=== PATIENT | male | born 1955 | race Caucasian/White ===

== ENCOUNTER 2020-06-12 21:04 | Emergency (ER) | payer BC ==
[2020-06-12] MEDS ORDERED: RINGERS SOLUTION,LACTATED 1,000 ML IV ONE (22:48)
--- NOTE | 2020-06-12 22:53 | ER Document Report ---
ED Medical Screen (RME) - General Chief Complaint: Breathing Difficulty Stated Complaint: COVID + DIFFICULTY BREATHING Time Seen by Provider: 06/12/20 22:40 Mode of Arrival: Wheelchair Information source: Patient Notes: HPI; 65-year-old male presents emergency room complaining of diarrhea, body aches with shortness of breath for the past week. He denies any fevers, no nausea, no vomiting. States he tested positive for Covid a week ago. Has been using [id number] cold medication without relief. PE: Alert and oriented x3. Lungs diminished without rales, rhonchi, wheezes. Heart: Tachycardic without murmurs, rubs, gallops. Accu-Chek 332 I have greeted and performed a rapid initial assessment of this patient. A comprehensive ED assessment and evaluation of the patient, analysis of test results and completion of the medical decision making process will be conducted by additional ED providers. I have specifically instructed the patient or family members with the patient to immediately return to any nursing staff should anything change in the patient's condition or with their chief complaint. TRAVEL OUTSIDE OF THE [place] IN LAST 30 DAYS: No - Related Data Allergies/Adverse Reactions: fenofibrate [From Tricor] Allergy (Verified 06/12/20 22:40) simvastatin [From Zocor] Allergy (Verified 06/12/20 22:40) Past Medical History - Social History Frequency of alcohol use: None Drug Abuse: None Physical Exam - Vital signs Vitals: Temp Pulse Resp BP Pulse Ox 97.8 F 116 H 32 H 113/59 L 97 06/12/20 21:12 06/12/20 21:12 06/12/20 21:12 06/12/20 21:12 06/12/20 21:12 Course - Vital Signs Vital signs: Temp Pulse Resp BP Pulse Ox 97.8 F 116 H 32 H 113/59 L 97 06/12/20 21:12 06/12/20 21:12 06/12/20 21:12 06/12/20 21:12 06/12/20 21:12
[2020-06-12 23:39] LABS: ABSOLUTE LYMPHOCYTES (AUTO) 0.5 10^3/uL (0.5-4.7); ABSOLUTE MONOCYTES (AUTO) 0.5 10^3/uL (0.1-1.4); ABSOLUTE NEUT (AUTO) 4.9 10^3/uL (1.7-8.2); BASOPHILS % (AUTO) 0.5 % (0-2); HEMATOCRIT 50.4 % (37.9-51.0); HEMOGLOBIN 17.9 g/dL (13.5-17.0); LYMPHOCYTES % (AUTO) 8.5 % (13-45); MEAN CORPUSCULAR HEMOGLOBIN 31.1 pg (27.0-33.4); MEAN CORPUSCULAR HGB CONC 35.6 g/dL (32.0-36.0); MEAN CORPUSCULAR VOLUME 87 fl (80-97); MONOCYTES % (AUTO) 8.7 % (3-13); PLATELET COUNT 172 10^3/uL (150-450); RED BLOOD COUNT 5.78 10^6/uL (4.35-5.55); RED CELL DISTRIBUTION WIDTH 13.6 % (11.5-14.0); SEGMENTED NEUTROPHILS % (AUTO) 82.3 % (42-78); TOTAL CELLS COUNTED % (AUTO) 100 %; WHITE BLOOD COUNT 5.9 10^3/uL (4.0-10.5)
[2020-06-12 23:52] LABS: ALBUMIN 4.2 g/dL (3.5-5.0); ALKALINE PHOSPHATASE 92 U/L (38-126); ASPARTATE AMINO TRANSFERASE 67 U/L (17-59); BILIRUBIN,DIRECT 0.3 mg/dL (0.0-0.4); BILIRUBIN,TOTAL 0.7 mg/dL (0.2-1.3); BLOOD UREA NITROGEN 22 mg/dL (7-20); CALCIUM 9.2 mg/dL (8.4-10.2); CARBON DIOXIDE 16 mmol/L (22-30); GLUCOSE 378 mg/dL (75-110); POTASSIUM 4.4 mmol/L (3.6-5.0); TOTAL PROTEIN 7.9 g/dL (6.3-8.2)
[2020-06-12 23:57] LABS: CHLORIDE 92 mmol/L (98-107)
[2020-06-13 00:13] LABS: ANION GAP 20 (5-19)
--- NOTE | 2020-06-13 00:32 | RADIOLOGY REPORT (SQ) ---
EXAM DESCRIPTION: XR CHEST 1 VIEW COMPLETED DATE/TME: 06/12/2020 23:35 CLINICAL HISTORY: 65 years Male, dyspnea COMPARISON: None. NUMBER OF VIEWS/TECHNIQUE: 1/AP FINDINGS: Mild central edema pattern including small hazy opacity of the left lower lung field. Adequate lung volume, normal cardiac silhouette, and sternotomy. IMPRESSION: Mild central edema pattern including small hazy opacity of the left lower lung field. Differential diagnosis includes pulmonary edema, pneumonia, and chronic interstitial lung disease.
--- NOTE | 2020-06-13 04:56 | ER Document Report ---
ED General - General Mode of Arrival: Wheelchair Information source: Patient TRAVEL OUTSIDE OF THE [place] IN LAST 30 DAYS: No <DRU JOHNSON - Last Filed: 06/13/20 08:02> <DOUGLAS CRISOSTOMO - Last Filed: 06/13/20 18:34> - General Chief Complaint: Flu Symptoms Stated Complaint: COVID + DIFFICULTY BREATHING Time Seen by Provider: 06/12/20 22:40 Primary Care Provider: EVITA WELSH MD [ACTIVE STAFF] - Follow up as needed Notes: Patient presents to the ER for evaluation of diarrhea with body aches, chills, fatigue. The patient also complains of shortness of breath and states he was diagnosed with COVID-19 last week. He denies significant cough. He denies nausea or vomiting. He denies abdominal pain. He denies fever. Nursing notes reviewed and past medical, social, and family histories reviewed and validated. (DRU JOHNSON) - Related Data Allergies/Adverse Reactions: fenofibrate [From Tricor] Allergy (Verified 06/12/20 22:40) simvastatin [From Zocor] Allergy (Verified 06/12/20 22:40) Past Medical History - General Information source: Patient - Social History Smoking Status: Former Smoker Chew tobacco use (# tins/day): No Frequency of alcohol use: None Drug Abuse: None Lives with: Family Family History: Reviewed & Not Pertinent Patient has suicidal ideation: No Patient has homicidal ideation: No - Past Medical History Cardiac Medical History: Reports: None Pulmonary Medical History: Reports: None EENT Medical History: Reports: None Neurological Medical History: Reports: None Endocrine Medical History: Reports: Hx Diabetes Mellitus Type 2 Renal/ Medical History: Reports: None Malignancy Medical History: Reports None GI Medical History: Reports: None Musculoskeletal Medical History: Reports None Skin Medical History: Reports None Psychiatric Medical History: Reports: None Traumatic Medical History: Reports: None Infectious Medical History: Reports: None Past Surgical History: Reports: None <DRU JOHNSON - Last Filed: 06/13/20 08:02> Review of Systems <DRU JOHNSON - Last Filed: 06/13/20 08:02> - Review of Systems Notes: Constitutional: Negative for fever. Positive for body aches. HENT: Negative for sore throat. Eyes: Negative for visual changes. Cardiovascular: Negative for chest pain. Respiratory: Negative for shortness of breath. Gastrointestinal: Negative for abdominal pain. Positive for diarrhea. Negative for nausea and vomiting. Genitourinary: Negative for dysuria. Musculoskeletal: Negative for back pain. Skin: Negative for rash. Neurological: Negative for headaches, weakness or numbness. 10 point ROS negative except as marked above and in HPI. (DRU JOHNSON) Physical Exam <DRU JOHNSON - Last Filed: 06/13/20 08:02> - Vital signs Vitals: Temp Pulse Resp BP Pulse Ox 97.8 F 116 H 32 H 113/59 L 97 06/12/20 21:12 06/12/20 21:12 06/12/20 21:12 06/12/20 21:12 06/12/20 21:12 - Notes Notes: CONSTITUTIONAL: Patient is frail appearing. SKIN: Warm, dry, and intact without rash EYES: Extraocular movements are grossly intact, clear conjunctiva HENT: Normocephalic, atraumatic, dry mucus membranes NECK: No obvious swelling, normal range of motion PULMONARY: Normal chest rise and fall. Breath sounds clear and equal bilaterally. No respiratory distress or stridor CARDIOVASCULAR: Regular tachycardic rate. No murmurs, rubs, gallops. Distal extremities are warm and well perfused. ABDOMINAL: Soft, nontender NEUROLOGIC: Normal speech, moves all extremities. Cranial nerves are within normal limits. MUSCULOSKELETAL: No gross deformities, atraumatic PSYCHIATRIC: Normal mood and affect (DRU JOHNSON) Course - Laboratory Results Result Diagrams: 06/12/20 23:22 06/12/20 23:22 - Transfer of Care Care transferred to following provider: IDALMIS Pittman <DRU JOHNSON - Last Filed: 06/13/20 08:02> - Laboratory Results Result Diagrams: 06/12/20 23:22 06/13/20 15:13 Critical Laboratory Results Reviewed: No Critical Results - reviewed all lab results w/ Dr Meade. - Radiology Results Critical Radiology Results Reviewed: No Critical Results - dr meade aware of CXR reports of hazy LLL infiltrate. <DOUGLAS CRISOSTOMO - Last Filed: 06/13/20 18:34> - Re-evaluation Re-evalutation: 06/13/20 12:50 Assumed care of patient at shift change at 8 AM the prior midlevel provider. Briefly, patient had presented after being diagnosed with Covid for 1 week with ongoing diarrhea and body aches. The current plan is pending ABG results due to patient's blood sugar of 380. He is a known insulin-dependent diabetic. His vital signs are reassuring and is not hypoxic. Chest x-ray did note a hazy opacity in the left lower lung. Which I will treat with azithromycin. Hold off on steroids due to hyperglycemia. Patient also giv en 4 mg of loperamide in the ED due to diarrhea. He reports significantly improved symptoms since arrival. Patient says he feels well enough to discharge home. He appears ill but nontoxic. He is denying chest pains or shortness of breath to me. ABG resulted, pH is 7.42. Decreased PCO2, decreased bicarb. PO266.9 XxD565%. Compensated metabolic acidosis He is unable to give me a specific amount of units of NovoLog he takes at home. But says he has been compliant up until yesterday and his blood sugar generally runs in the 150s. Patient received a liter of LR before I arrived, I added a second liter of normal saline. We will recheck blood sugar after these. If patient's blood sugar has improved to below 300, will DC home w/ azithromycin and supportive care at home. PCP f/u in 1-2 days for recheck. return factors discussed w/ pt 06/13/20 16:08 Spoke with patient's on the phone. She reports concerns of confusion, weakness, and multiple falls at home the past couple days. She checked his medication log and noted that he has not filled out his insulin log at all the past few days which usually he is very detailed. She says that she will tell him something and a few minutes later she will have to tell him again and he acts like she had never said that. She read off patient's home meds and says that he takes NovoLog 100 units maybe twice a day. She is concerned about him returning home due to his weakness and confusion and repeated falls. I discussed case with Dr. Dawkins-we will get CT head, blood cultures, tox screen since I now have new information of patient's confusion and repeated falls at home in the context of Covid positive with a left lower lobe infiltrate. Azithromycin 500 mg IV started. Pending repeat BMP. Accu-Chek 280, insulin order was canceled. Patient's curb 65 score is 2 due to elevated BUN and confusion. his blood pressure has been stable and o2 sats have been in the mid 90's. Difficult to ascertain whether patient is truly confused. He routinely just gives 1 word answers and is generally agreeable. I will consult the hospitalist to discuss possible observation/admission. CT head reviewed and negative for acute findings. 06/13/20 18:02 Dr Hanson - hospitalist- evaluated the pt. Feels he is appropriate to discharge home for outpt management. Pts overall clinical picture reflects dehydration and ketosis from not eating. Recommended the pt push fluids at home, take otc vitamin C and zinc, hold lasix for next few days. 1 dose of PO ivermectin given prior to discharge. Does not feel outpt antibiotics are necessary at this time. Dr Hanson updated pts regarding plan, requests I write pt for flonase, albuterol, and immodium for symptomatic treatment of wheezing/congestion/diarrhea as reported by . Pt is to closely monitor symptoms and to return if condition worsens. pcp f/u in the next couple days for recheck. 06/13/20 18:29 (DOUGLAS CRISOSTOMO) - Vital Signs Vital signs: Temp Pulse Resp BP Pulse Ox 97.8 F 93 26 H 125/65 96 06/12/20 21:12 06/13/20 06:47 06/13/20 15:01 06/13/20 15:00 06/13/20 15:01 - Laboratory Results Laboratory Results Interpreted: 06/12/20 06/12/20 06/12/20 08:05 22:48 23:22 RBC 5.78 H Hgb 17.9 H Lymph % (Auto) 8.5 L Seg Neutrophils % 82.3 H Carbonic Acid 0.78 L ABG pCO2 26.0 L ABG pO2 66.9 L ABG HCO3 16.5 L ABG Total CO2 17.3 L Sodium Chloride Carbon Dioxide Anion Gap BUN Glucose POC Glucose 362 H Calcium AST Urine Protein Urine Glucose (UA) Urine Ketones Urine Blood Urine Ascorbic Acid 06/12/20 06/13/20 06/13/20 23:22 08:31 09:36 RBC Hgb Lymph % (Auto) Seg Neutrophils % Carbonic Acid ABG pCO2 ABG pO2 ABG HCO3 ABG Total CO2 Sodium 128.2 L Chloride 92 L Carbon Dioxide 16 L Anion Gap 20 H BUN 22 H Glucose 378 H POC Glucose 340 H Calcium AST 67 H Urine Protein 100 H Urine Glucose (UA) 150 H Urine Ketones 100 H Urine Blood MODERATE H Urine Ascorbic Acid 20 H 06/13/20 06/13/20 13:23 15:13 RBC Hgb Lymph % (Auto) Seg Neutrophils % Carbonic Acid ABG pCO2 ABG pO2 ABG HCO3 ABG Total CO2 Sodium 132.6 L Chloride Carbon Dioxide 21 L Anion Gap BUN 21 H Glucose 299 H POC Glucose 281 H Calcium 8.3 L AST Urine Protein Urine Glucose (UA) Urine Ketones Urine Blood Urine Ascorbic Acid - Transfer of Care Notes: 06/13/20 08:02 Report given to oncoming provider, IDALMIS Pittman. (DRU JOHNSON) Discharge <DRU JOHNSON - Last Filed: 06/13/20 08:02> <DOUGLAS CRISOSTOMO - Last Filed: 06/13/20 18:34> - Discharge Clinical Impression: COVID-19, Dehydration, Left lower lobe pulmonary infiltrate Hyperglycemia due to type 2 diabetes mellitus Qualifiers: Diabetes mellitus ad terminal makeup operator insulin use: with nursing home use Qualified Code(s): E11.65 - Type 2 diabetes mellitus with hyperglycemia Clinical Impression: (Ruled Out): Left lower lobe pneumonia Condition: Stable Disposition: HOME, SELF-CARE Instructions: COVID-19 Guidance for Persons Under Investigation, Dehydration (OM) Additional Instructions: Do not take lasix for the next 3-4 days. Drinks lots of water- you were very dehydrated. do not drink Diet mountain dew, it will make you more dehydrated. closely monitor your blood sugar and take your insulin and home medications as prescribed. You can also take vitamin C and Zinc to help you recover from COVID. It will be a process to recover from COVID, which can take many weeks. return to the ER if your condition worsens. Prescriptions: Loperamide HCl [Loperamide] 2 mg PO Q6HP PRN #15 tablet PRN Reason: Fluticasone Propionate [Flonase Nasal Entriken 50 Mcg/Entriken 16 gm] 1 spray NASL Q12 #1 inhaler Albuterol Sulfate [Proair HFA Inhalation Aerosol 8.5 gm MDI] 2 puff IH Q4H PRN #1 mdi PRN Reason: Referrals: OSUNKOYA,EVITA, MD [ACTIVE STAFF] - Follow up as needed
[2020-06-13 08:24] LABS: ARTERIAL BLOOD BASE EXCESS -5.8 mmol/L; ARTERIAL BLOOD H2CO3 0.78 mmol/L (1.05-1.35); ARTERIAL BLOOD HCO3 16.5 mmol/L (20-24); ARTERIAL BLOOD PH 7.42 (7.35-7.45); ARTERIAL BLOOD PO2 66.9 mmHg (80-100); ARTERIAL BLOOD TOTAL CO2 17.3 mmol/L (23-27)
[2020-06-13 08:27] LABS: ARTERIAL BLOOD FIO2 21%
[2020-06-13 09:11] LABS: APPEARANCE,URINE CLEAR; BILIRUBIN,URINE NEGATIVE (NEGATIVE); COLOR,URINE YELLOW; GLUCOSE, URINE 150 mg/dL (NEGATIVE); KETONES,URINE 100 mg/dL (NEGATIVE); LEUKOCYTE ESTERASE,URINE NEGATIVE (NEGATIVE); NITRITE,URINE NEGATIVE (NEGATIVE); PROTEIN,URINE 100 mg/dL (NEGATIVE); UROBILINOGEN,URINE NEGATIVE mg/dL (<2.0)
[2020-06-13] MEDS ORDERED: NORMAL SALINE 1000 ML 1,000 ML IV ONE (09:12)
[2020-06-13] MEDS ORDERED: LOPERAMIDE HCL 2 MG CAPSULE PO ONE ×2 (09:15→11:30)
[2020-06-13] MEDS ORDERED: INSULIN LISPRO 100 UNIT/ML 3 ML VIAL SUBCUT ONE (13:02)
[2020-06-13] MEDS ORDERED: DEXTROSE 40% GEL 15 GM TUBE PO PRN ×2 (13:02)
[2020-06-13] MEDS ORDERED: GLUCAGON,HUMAN RECOMB 1 MG INJ IM PRN (13:02)
[2020-06-13] MEDS ORDERED: DEXTROSE 50%-WATER 25 GM/50 ML DISP.SYRIN IV PRN ×2 (13:02)
[2020-06-13] MEDS ORDERED: AZITHROMYCIN INJ 500 MG VIAL IV ONE (13:45)
--- NOTE | 2020-06-13 15:12 | RADIOLOGY REPORT (SQ) ---
EXAM DESCRIPTION: CT HEAD WITHOUT IMAGES COMPLETED DATE/TIME: 06/13/2020 3:01 pm REASON FOR STUDY: confusion, covid COMPARISON: None. TECHNIQUE: Axial images acquired through the brain without intravenous contrast. Images reviewed wi th bone, brain and subdural windows. Additional sagittal and coronal reconstructions were generated. Images stored on PACS. All CT scanners at this facility use dose modulation, iterative reconstruction, and/or weight based d osing when appropriate to reduce radiation dose to as low as reasonably achievable (ALARA). [facility]: Dose Right [facility]: CareDose [facility]: Dose Right [facility]: Teradose 4D [facility]: [employer] RADIATION DOSE: CT Rad equipment meets quality standard of care and radiation dose reduction techniq ues were employed. CTDIvol: 53.2 mGy. DLP: 1097 mGy-cm. mGy. LIMITATIONS: None. FINDINGS: VENTRICLES: Normal size and contour. CEREBRUM: No masses. No hemorrhage. No midline shift. No evidence for acute infarction. Normal gra y/white matter differentiation. No areas of low density in the white matter. CEREBELLUM: No masses. No hemorrhage. No alteration of density. No evidence for acute infarction. EXTRAAXIAL SPACES: No fluid collections. No masses. ORBITS AND GLOBE: No intra- or extraconal masses. Normal contour of globe without masses. CALVARIUM: No fracture. PARANASAL SINUSES: Mild mucosal thickening throughout the paranasal sinuses. SOFT TISSUES: No mass or hematoma. OTHER: No other significant finding. IMPRESSION: 1. No acute intracranial event. 2. Mild mucosal thickening throughout the paranasal sinuses. EVIDENCE OF ACUTE STROKE: NO. COMMENT: Quality ID # [id number]: Final reports with documentation of one or more dose reduction techniques (e.g., Automated exposure control, adjustment of the mA and/or kV according to patient size, use of iterative reconstruction technique) TECHNICAL DOCUMENTATION: JOB ID: [id number] 2010 [employer]- All Rights Reserved Reading location - IP/workstation name: [email or web address]
[2020-06-13 16:07] LABS: ANION GAP 14 (5-19); BLOOD UREA NITROGEN 21 mg/dL (7-20); CALCIUM 8.3 mg/dL (8.4-10.2); CARBON DIOXIDE 21 mmol/L (22-30); CHLORIDE 98 mmol/L (98-107); GLUCOSE 299 mg/dL (75-110); POTASSIUM 4.1 mmol/L (3.6-5.0)
[2020-06-13 16:30] LABS: URINE AMPHETAMINES SCREEN NEGATIVE; URINE BARBITURATES SCREEN NEGATIVE; URINE BENZODIAZEPINES SCREEN NEGATIVE; URINE COCAINE SCREEN NEGATIVE; URINE MARIJUANA (THC) SCREEN NEGATIVE; URINE METHADONE SCREEN NEGATIVE; URINE PHENCYCLIDINE SCREEN NEGATIVE
--- NOTE | 2020-06-13 18:21 | PDOC CONSULTATION ---
Consultation Consult Date: 06/13/20 Attending physician:: DOUGLAS CRISOSTOMO Provider Consulted: MIKE DONIS Consult reason:: covid, dehydration History of Present Illness History of Present Illness: NERISSA DOMINGUEZ is a 65 year old male with history of CAD, diabetes mellitus, presents to the hospital for evaluation of diarrhea and concerns for fatigue and dehydration. Patient is not having much respiratory symptoms besides just some nasal congestion. His does notice that he has had some wheezing. He does not feel short of breath at all. He has had some fevers at home. He tested positive for COVID-19 little less than a week ago at [facility]. He has been at home on isolation and has vitamin and zinc supplements. He denies any abdominal pain. He does endorse frequent diarrhea and states about 7 episodes in the past 24 hours prior to presentation. ER provider does tell me that he has not had much of any diarrhea here at all. He has also not been hypoxic while in the hospital with SPO2 remaining in the 90s on room air. Vital signs have been stable. He did receive some hydration given his hyperglycemia noted ketonuria. Patient admits to very poor p.o. intake and loss of appetite since his infection. Denies any nausea and is able to tolerate p.o. Past Medical History Cardiac Medical History: Reports: Coronary Artery Disease Endocrine Medical History: Reports: Diabetes Mellitus Type 2 Past Surgical History Past Surgical History: Reports: Coronary Artery Bypass Graft Social History Lives with: Family Smoking Status: Former Smoker Frequency of Alcohol Use: None Hx Recreational Drug Use: No Family History Family History: DM, Hypertension Parental Family History Reviewed: Yes Children Family History Reviewed: Yes Sibling(s) Family History Reviewed.: Yes Medication/Allergy Allergies/Adverse Reactions: fenofibrate [From Tricor] Allergy (Verified 06/12/20 22:40) simvastatin [From Zocor] Allergy (Verified 06/12/20 22:40) Review of Systems Constitutional: PRESENT: fatigue, fever(s), weakness Eyes: ABSENT: visual disturbances Ears: ABSENT: hearing changes Nose, Mouth, and Throat: ABSENT: headache(s) Cardiovascular: ABSENT: chest pain Respiratory: ABSENT: cough, dyspnea Gastrointestinal: ABSENT: abdominal pain, nausea, vomiting Genitourinary: ABSENT: dysuria Neurological: PRESENT: confusion. ABSENT: dizziness Endocrine: ABSENT: polyuria Hematologic/Lymphatic: ABSENT: lymphadenopathy Allergic/Immunologic: PRESENT: other - nasal congestion Physical Exam Vital Signs: Temp Pulse Resp BP Pulse Ox 97.8 F 93 26 H 125/65 96 06/12/20 21:12 06/13/20 06:47 06/13/20 15:01 06/13/20 15:00 06/13/20 15:01 Intake & Output 06/12/20 06/13/20 06/14/20 06:59 06:59 06:59 Intake Total 1999 Balance 1999 Weight 90.718 kg General appearance: PRESENT: no acute distress, cooperative Eye exam: PRESENT: EOMI Neck exam: ABSENT: JVD Respiratory exam: PRESENT: crackles - minimal, symmetrical, unlabored. ABSENT: tachypnea, wheezes Cardiovascular exam: PRESENT: RRR, +S1, +S2. ABSENT: tachycardia GI/Abdominal exam: PRESENT: soft. ABSENT: rebound, rigid, tenderness Extremities exam: ABSENT: calf tenderness, pedal edema Neurological exam: PRESENT: alert, awake, oriented to person, oriented to place, oriented to time, oriented to situation Psychiatric exam: ABSENT: agitated, anxious Focused psych exam: ABSENT: pressured speech Skin exam: ABSENT: jaundice Results Laboratory Results: 06/12/20 23:22 06/13/20 15:13 06/12/20 06/12/20 06/12/20 08:05 23:22 23:22 WBC 5.9 RBC 5.78 H Hgb 17.9 H Hct 50.4 MCV 87 MCH 31.1 MCHC 35.6 RDW 13.6 Plt Count 172 Seg Neutrophils % 82.3 H Carbonic Acid 0.78 L HCO3/H2CO3 Ratio 21:1 ABG pH 7.42 ABG pCO2 26.0 L ABG pO2 66.9 L ABG HCO3 16.5 L ABG O2 Saturation 94.0 ABG Base Excess -5.8 FiO2 21% Sodium 128.2 L Potassium 4.4 Chloride 92 L Carbon Dioxide 16 L Anion Gap 20 H BUN 22 H Creatinine 1.08 Est GFR ( Amer) > 60 Glucose 378 H Calcium 9.2 Total Bilirubin 0.7 AST 67 H Alkaline Phosphatase 92 Total Protein 7.9 Albumin 4.2 Urine Color Urine Appearance Urine pH Ur Specific [place] Urine Protein Urine Glucose (UA) Urine Ketones Urine Blood Urine Nitrite Ur Leukocyte Esterase Urine WBC (Auto) Urine RBC (Auto) 06/13/20 06/13/20 08:31 15:13 WBC RBC Hgb Hct MCV MCH MCHC RDW Plt Count Seg Neutrophils % Carbonic Acid HCO3/H2CO3 Ratio ABG pH ABG pCO2 ABG pO2 ABG HCO3 ABG O2 Saturation ABG Base Excess FiO2 Sodium 132.6 L Potassium 4.1 Chloride 98 Carbon Dioxide 21 L Anion Gap 14 BUN 21 H Creatinine 0.86 Est GFR ( Amer) > 60 Glucose 299 H Calcium 8.3 L Total Bilirubin AST Alkaline Phosphatase Total Protein Albumin Urine Color YELLOW Urine Appearance CLEAR Urine pH 6.0 Ur Specific [place] 1.010 Urine Protein 100 H Urine Glucose (UA) 150 H Urine Ketones 100 H Urine Blood MODERATE H Urine Nitrite NEGATIVE Ur Leukocyte Esterase NEGATIVE Urine WBC (Auto) 1 Urine RBC (Auto) 3 06/12/20 23:22 Troponin I < 0.012 Impressions: Chest X-Ray 06/12/20 22:46 IMPRESSION: Mild central edema pattern including small hazy opacity of the left lower lung field. Differential diagnosis includes pulmonary edema, pneumonia, and chronic interstitial lung disease. Head CT 06/13/20 13:46 IMPRESSION: 1. No acute intracranial event. 2. Mild mucosal thickening throughout the paranasal sinuses. EVIDENCE OF ACUTE STROKE: NO. Assessment and Plan - Diagnosis (1) Dehydration Is this a current diagnosis for this admission?: Yes Plan: Given IV fluids in the ER. I have discussed with patient and patient's and encouraged her to encourage p.o. hydration at home and give him electrolytes. She has also held his Lasix which I think is a good idea in light of his poor p.o. intake currently. He takes Lasix 20 mg daily at home. (2) Pneumonia due to COVID-19 virus Is this a current diagnosis for this admission?: Yes Plan: Patient's informs me that he has vitamin C, vitamin D and zinc tablets at home. He can continue to take this. I will give a dose of p.o. ivermectin in the ER. Currently not hypoxic at all and does not require admission. Will recommend giving him Flonase nasal spray and albuterol inhaler as the reports that he has some noted wheezing at home and some nasal congestion. Can also try some Imodium as needed for the diarrhea I have advised to return to the hospital or seek medical advice if things get worse. (3) Starvation ketoacidosis Is this a current diagnosis for this admission?: Yes Plan: Due to poor p.o. intake and loss of appetite secondary to COVID-19. Goal is to simply encourage p.o. intake even if it is as little as drinking Ensure supplements. I have discussed this with his . (4) Hyperglycemia due to type 2 diabetes mellitus Qualifiers: Diabetes mellitus intermediate insulin use: with intermediate use Qualified Code(s): E11.65 - Type 2 diabetes mellitus with hyperglycemia; Z79.4 - penitentiary (current) use of insulin Is this a current diagnosis for this admission?: Yes Plan: Resume diabetic medications. Stay hydrated. Certainly not in DKA. (5) Fatigue Qualifiers: Fatigue type: postviral fatigue syndrome Qualified Code(s): G93.3 - Postviral fatigue syndrome Is this a current diagnosis for this admission?: Yes Plan: Very common side effect of COVID-19. Reassurance and encouragement with activity. (6) Confusion Is this a current diagnosis for this admission?: Yes Plan: reports some confusion at home. On my assessment he does not seem confused really. It is not uncommon that patients with viral infection and remarkable dehydration like he presented may have had some delirium. - Time Time Spent with patient: 35 or more minutes Anticipated Discharge Disposition: Home, Self Care Anticipated Discharge Timeframe: within 24 hours
[2020-06-13 19:17] VITALS: BP 130/64
[2020-06-13] MEDS ORDERED: IVERMECTIN 3 MG TABLET PO ONE (19:30)
== END 2020-06-13 19:39 | disposition home or self-care (01) ==
LOC: ER 21:04
DX: U07.1 COVID-19 (principal); E86.0 Dehydration; R06.02 Shortness of breath; R29.6 Repeated falls; R19.7 Diarrhea, unspecified; R53.1 Weakness; R68.83 Chills (without fever); R52 Pain, unspecified; R09.81 Nasal congestion; G93.3 Postviral and related fatigue syndromes; R00.0 Tachycardia, unspecified; E11.65 Type 2 diabetes mellitus with hyperglycemia; Z79.4 Long term (current) use of insulin; R91.8 Other nonspecific abnormal finding of lung field; Z87.891 Personal history of nicotine dependence; Z88.8 Allergy status to other drugs, medicaments and biological substances
CPT/HCPCS: 99285; 96361; 96365; 36415; 87040; 82962; 82803; 85025; 87077; 80048; 80053; 81001; 84484; 80307; 87150 ×26; 71045; 70450; J7030; J7120; J0456